=== PATIENT | male | born 1995 | race Two or more races ===

== ENCOUNTER 2024-02-03 12:38 | Emergency (ER) | payer OTHER ==
[~2024-02-03] VITALS: Ht 167.6 cm; Wt 95.5 kg
[2024-02-03] MEDS ORDERED: TRAM-626 PO (14:26)
[2024-02-03] MEDS: KETOROLAC TROMETH 60MG/2ML VIAL IM ONE (14:42)
[2024-02-03 14:57] VITALS: BP 148/99; PULSE 82; RESP 18; TEMP 98.2; O2SAT 99
== END 2024-02-03 14:59 | disposition home or self-care (01) ==
LOC: ER 12:38
DX: G89.29 Other chronic pain (principal); M54.50 Low back pain, unspecified; Z79.899 Other long term (current) drug therapy
CPT/HCPCS: 96372; 99283; J1885

== ENCOUNTER 2025-02-22 19:30 | Emergency (ER) | payer MEDICAID, SELFPAY ==
[~2025-02-22] VITALS: Ht 165.1 cm; Wt 95.9 kg
[~2025-02-22 19:30] MED LIST: TRAM-626 PO
--- NOTE | 2025-02-22 19:43 | ECG ---
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
[2025-02-22 20:02] LABS: Hematocrit 44.2 % (41.0-53.0); Hemoglobin 15.3 g/dL (13.5-17.5); Mean Corpuscular Hemoglobin 29.6 pg (28.0-32.0); Mean Corpuscular Volume 85.4 fL (80.0-100.0); Nucleated Red Blood Cells % 0.1 %
[2025-02-22 20:10] LABS: Chloride 104 mmol/L (98-107); Potassium 4.0 mmol/L (3.5-5.1); Sodium 141 mmol/L (136-145)
[2025-02-22 20:11] LABS: Anion Gap 9 (5-15); Calcium 9.8 mg/dL (8.7-10.4); Carbon Dioxide 28 mmol/L (20-31)
--- NOTE | 2025-02-22 20:11 | DVH ---
INDICATION: chest pain TECHNIQUE: Frontal view of the chest. COMPARISON: None FINDINGS/IMPRESSION: The lungs are clear. The cardiomediastinal silhouette is unremarkable. No pleural effusion or pneumothorax. No acute osseous abnormality.
[2025-02-22 20:16] LABS: BUN/Creatinine Ratio 13.3 (10.0-20.0); Blood Urea Nitrogen 12 mg/dL (9-23)
[2025-02-22 20:21] LABS: Glucose 111 mg/dL (74-106)
--- NOTE | 2025-02-22 20:21 | ED.PDOC ---
HPI Comments SILVER CHAVIRA: HPI: Poor Historian. 29-year-old male presents to emergency depart for evaluation of left-sided chest pain nonspecific. Onset of symptoms yesterday. No alleviating or precipitating factors. No other associated symptoms. Past Medical History: Childhood leukemia, hypertension Past Surgical History: Childhood right chest wall surgery Allergic to bees Denies any use of drugs or tobacco. REVIEW OF SYSTEMS: CONSTITUTIONAL: Denies acute: fever, diaphoresis, chills, generalized weakness. HEAD: Denies acute: headache, photophobia Eyes: Denies acute: Double vision, vision loss, eye pain, eye discharge. EARS: Denies acute: tinnitus, hearing loss, ear discharge, ear pain, THROAT: Denies acute: sore throat, swelling, difficulty swallowing , pain with swallowing, change in voice. NECK: Denies acute: neck pain, neck swelling, stiff neck. HEART: Denies acute : palpitations, LUNGS: Denies acute: SOB, wheezing, cough, hemoptysis ABDOMEN: Denies acute: abdominal pain, Nausea, Vomiting, diarrhea, melena , hematemesis, hematochezia SKIN: Denies acute: rash, redness, lesions, itchiness. EXTREMITIES: Denies acute: calf pain, numbness, tingling, weakness, denies pain in extremity. Denies acute: Low back pain. Neuro: Denies acute: focal neurological deficit, motor or sensory focal neurological deficit, tremors, seizure like activity, confusion, dizziness, change in mental status, loss of bowel or bladder function, cauda equina like symptoms. : Denies acute: dysuria, hematuria, flank pain, increase in urinary frequency. PSYCH: Denies acute: hallucination, suicidal ideation, homicidal ideation. PHYSICAL EXAM: General: ----no----acute distress, awake and alert. Head: normocephalic, atraumatic. No raccoon's eyes, no rm sign. Neck: supple, trachea is midline, no swelling. Throat: Normal phonation. Eyes:, no erythema, no purulent discharge, no proptosis, no icterus. Heart: regular rate, regular rhythm, no significant murmur appreciated. Lungs: no apparent respiratory distress, Able to speak in full sentences. No wheezing, no rhonchi, no crackles. No stridors Clear to auscultation bilaterally. Abdomen: non tender to palpation, non distended, soft, no guarding, no rebound, + bowel sounds. Neuro: Awake, Alert, oriented to name, self, situation, follows commands GCS=15. Speech is normal. Skin: no petechia, no purpura, no cyanosis, non-pale, not jaundice. Lower extremities: --no - Pitting edema no deformity, no focal swelling, no calf TTP. Makes eye contact. moves all four extremities. Face: no apparent facial droop. Ambulating in the ED independently. ED COURSE: DISCLAIMER: This medical document was created using an electronic medical record system with voice recognition software and computerized dictation system. Although this document has been carefully reviewed, there might still be some phonetic and typographical errors. Occasional wrong-word or "sound-alike" substitutions may have occurred due to the inherent limitations of voice recognition software. These areas are purely typographical due to imperfections of the software programs and do not reflect any compromise in the patient's medical care. Please read the chart carefully and recognize, using context, where these substitutions have occurred. Chief Complaint: Chest Pain Time Seen by MD: 19:43 Primary Care Provider: LG Reviewed Notes: Nurses Notes, Allergies Allergies: Coded Allergies: No Known Drug Allergy (Verified Allergy, Unknown, 02/22/25) Home Meds Active Scripts Tramadol HCl (Tramadol HCl) 50 Mg Tab, 50 MG PO TID, #20 TAB Prov:BHAVNA MARSHALL 02/04/24 Information Source: Patient Mode of Arrival: Ambulatory Past Medical History PAST MEDICAL HISTORY: Cancer, HTN Surgical History: Denies all surgeries Family History Family History: Reviewed,noncontributory to illness Social History Smoker: Non-Smoker Alcohol: Denies ETOH Use Drugs: Denies Drug Use Lives In: Home EKG EKG : Pulse Rate (adult): 86 Cardiac Rhythm: ST Was a procedure done? Was a procedure done?: No CP Differential Dx Differential Diagnosis: N/A Differential Diagnosis: Other (Ddx include but not limitied to gastritis, musculoskeletal pain, radiculopathy, atypical chest pain, dissection, aneurysm, ACS, unstable angina, hiatal hernia, GERD, anxiety, costochondritis, PE, pneumothroax, neoplasm, cardiac ischemia, drug abuse, anemia.) X-Ray, Labs, Meds, VS Vital Signs Date Time Temp Pulse Resp B/P (MAP) Pulse Ox O2 Delivery O2 Flow Rate FiO2 02/22/25 22:14 98.9 77 19 137/97 (110) 98 98.9 02/22/25 22:14 77 19 98 Room Air 02/22/25 20:47 76 02/22/25 20:43 86 02/22/25 19:39 86 02/22/25 19:31 98.0 91 18 140/92 97 98.0 Lab Test 02/22/25 20:50 02/22/25 19:52 Range/Units Troponin I High Sensitivity 4 5 </=54 ng/L White Blood Count 7.6 4.4-10.8 10^3/uL Red Blood Count 5.17 4.5-5.90 10^6/uL Hemoglobin 15.3 13.5-17.5 g/dL Hematocrit 44.2 41.0-53.0 % Mean Corpuscular Volume 85.4 80.0-100.0 fL Mean Corpuscular Hemoglobin 29.6 28.0-32.0 pg Mean Corpuscular Hemoglobin Concent 34.7 32.0-36.0 g/dL Red Cell Distribution Width 12.9 11.8-14.3 % Platelet Count 265 140-450 10^3/uL Mean Platelet Volume 8.1 6.9-10.8 fL Neutrophils (%) (Auto) 55.0 37.0-80.0 % Lymphocytes (%) (Auto) 35.7 10.0-50.0 % Monocytes (%) (Auto) 7.0 0.0-12.0 % Eosinophils (%) (Auto) 1.4 0.0-7.0 % Basophils (%) (Auto) 0.9 0.0-2.0 % Neutrophils # (Auto) 4.2 1.6-8.6 10 ^3/uL Lymphocytes # (Auto) 2.7 0.4-5.4 10 ^3/uL Monocytes # (Auto) 0.5 0-1.3 10 ^3/uL Eosinophils # (Auto) 0.1 0-0.8 10 ^3/uL Basophils # (Auto) 0.1 0-0.2 10 ^3/uL Nucleated Red Blood Cells 0.1 % D-Dimer, Quantitative < 0.19 0.0-0.49 mg/L FEU Sodium Level 141 136-145 mmol/L Potassium Level 4.0 3.5-5.1 mmol/L Chloride Level 104 98-107 mmol/L Carbon Dioxide Level 28 20-31 mmol/L Anion Gap 9 5-15 Blood Urea Nitrogen 12 9-23 mg/dL Creatinine 0.90 0.700-1.30 mg/dL Glomerular Filtration Rate Calc 120 >90 mL/min BUN/Creatinine Ratio 13.3 10.0-20.0 Serum Glucose 111 H 74-106 mg/dL Calcium Level 9.8 8.7-10.4 mg/dL [place] [id number] Ph: [phone] DIAGNOSTIC IMAGING Diagnostic Imaging Report : [id number] Signed PATIENT: SILVER CHAVIRA ACCT: [id number] UNIT: [id number] : 1995 LOC: ER ROOM / BED: / AGE / SEX: 29 / M ADM STATUS: REG ER SERVICE 35 ORDERING PHYSICIAN: ER PROCEDURE(s): CXRP - CHEST PORTABLE REASON: chest pain ORDER NUMBER(s): [id number], ACCESSION NUMBER(s): [id number] INDICATION: chest pain TECHNIQUE: Frontal view of the chest. COMPARISON: None FINDINGS/IMPRESSION: The lungs are clear. The cardiomediastinal silhouette is unremarkable. No pleural effusion or pneumothorax. No acute osseous abnormality. ATED BY: IVANNA FRENCH MD DICTATED DATE/TIME: 02/22/252007 SIGNED BY: IVANNA FRENCH MD SIGNED DATE/TIME: 02/22/252007 CC: Time of 1ST Reevaluation: 20:42 Reevaluation 1ST: Unchanged Patient Education/Counseling: Diagnosis, Treatment Family Education/Counseling: No Family Present Comments MDM: patient presented with the above HPI.--cardiac---workup was initiated. patient was found with the above mentioned diagnosis. the following medications were ordered: please refer to order lists of meds and tests obtained by myself Dr. Rincon. Patient ED course and VS have been stabilized. Patient has been reassessed in the ED and remained in a stable condition. Pertinent incidental findings were discussed with the patient and/or family. Patient/family voices understanding and is agreeable with plan. Patient has been observed in the ED adequate length of time to insure improvement/stability. Escalation of care considered: Consideration of escalation to observation or admission Heart score is low Patient was DISCHARGED home in a stable condition. All the reports of any imaging studies that were ordered by myself were reviewed by myself. SEPSIS Sepsis Screen Date sepsis recognized/suspect: Feb 22, 2025 Time Sepsis recognized/suspect: 1933 Recent Procedure: No On Antibiotic Therapy: No Respiratory Rate >20: No Heart Rate >90: No Temp<36 C (96.8 F) or >38.3 C: No SBP <90 or MAP <65 mmHG: No New Acute Mental Status Change: No Is the patient on CPAP, BIPAP,: No Physician Orders Chest Portable (02/22/25 19:36) Electrocardigram (02/22/25 19:36) Electrocardigram (02/22/25 20:36) Personal Service Workers (02/22/25 ) Vital Signs Date Time Temp Pulse Resp B/P (MAP) Pulse Ox O2 Delivery O2 Flow Rate FiO2 02/22/25 22:14 98.9 77 19 137/97 (110) 98 98.9 02/22/25 22:14 77 19 98 Room Air 02/22/25 20:47 76 02/22/25 20:43 86 02/22/25 19:39 86 02/22/25 19:31 98.0 91 18 140/92 97 98.0 Laboratory Tests Test 02/22/25 19:52 White Blood Count 7.6 10^3/uL (4.4-10.8) Departure 1 Departure Time of Disposition: 20:21 Impression: Primary Impression: Chest pain Disposition: HOME / SELF CARE / HOMELESS Condition: Stable Additional Instructions: Additional instructions: Please read all instructions provided in this packet carefully. You MUST follow-up with your primary care/family doctor in 1 to 2 days. If you are unable to see your primary care/family doctor, please return to our emergency room for re-assessment and re-evaluation in 1 to 2 days. Return to the emergency room here in our facility or to the nearest ER [facility] if your symptoms change or worsen. CONSULTATIONS: you MUST Follow-up for consultation as soon as possible with: --cardiology in 1-2 days. Please call for appointment. You MUST call the consultants office yourself to make an appointment. You may need to arrange that through your insurance and/or your primary/family doctor. If you are unable to see the bmw sales consultant in 1 to 2 days, you must return to our emergency room (or any other ER of your choice) for re-assessment and re- evaluation. Adequate fluid hydration. Although you have been discharged from the Emergency Department, this does not mean that you have a "clean bill of health". No definitive diagnosis for your symptoms has been made today. It is possible that you are in the process of developing a serious illness. This is why you must return to the ED without fail if any new or worsening symptoms develop. Discharged With: Self Critical Care Note Critical Care Time?: No Heart Score Heart Score: Heart Score Response (Comments) Value History Slightly Suspicious 0 EKG Normal 0 Age <45 0 Risk Factors 1 or 2 risk factors 1 Troponin Normal limit 0 Total 1 I personally scribed for AMANDO RINCON DO ([email or web address]) on 02/22/25 at 20:43. Electronically submitted by Quentin Adkins ([employer]). I personally scribed for AMANDO RINCON DO ([email or web address]) on 02/22/25 at 20:53. Electronically submitted by Quentin Adkins ([employer]). AMANDO RINCON DO Feb 22, 2025 20:21
[2025-02-22 22:14] VITALS: BP 137/97; PULSE 77; RESP 19; TEMP 98.9; O2SAT 98
--- NOTE | 2025-02-23 19:39 | ECG ---
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
== END 2025-02-22 22:14 | disposition home or self-care (01) ==
LOC: ER 19:30
DX: R07.89 Other chest pain (principal); I10 Essential (primary) hypertension; Z79.899 Other long term (current) drug therapy; Z91.030 Bee allergy status
CPT/HCPCS: 36415; 71045; 80048; 84484; 85025; 85379; 93005